=== PATIENT | female | born 1960 | race Hispanic/Latino ===

== ENCOUNTER 2022-05-16 11:40 | Day surgery (SDC) | payer BC, OTHER ==
[2022-05-12 15:44] LABS: Absolute Lymphocytes (CBC) 1.9 K/uL (0.7-4.9); Hematocrit 40.5 % (36.0-45.0); Lymphocytes % 24.1 % (15.3-44.8); MCV 83.9 fL (80-100); MPV 7.6 fL (7.6-11.3); RBC Red Blood Cell Count 4.83 M/uL (3.86-4.86)
[2022-05-12 15:51] LABS: SARS-CoV-2 Antigen Rapid Res Negative (Negative)
[2022-05-12 15:58] LABS: Potassium 5.3 mmol/L (3.5-5.1)
--- NOTE | 2022-05-13 15:09 | EKG ---
Test Date: 2022-05-12 Test Time: 15:16:57 Practice Professional: PATRICK MEASUREMENT RESULTS: Intervals: Rate: 68 OR: 134 QRSD: 82 QT: 390 QTc: 414 [place]: P: 50 OR: 134 QRS: 17 T: 19 INTERPRETIVE STATEMENTS: Normal sinus rhythm Possible Left atrial enlargement Borderline ECG No previous ECG available for comparison Electronically Signed On 05-13-22 15:08:00 CDT by Hung Vargas
[2022-05-16] MEDS ORDERED: Ringers Lactate 1,000 ML IV ONE (11:58)
[2022-05-16] MEDS ORDERED: CELECOXIB 100 MG CAPSULE ONE (12:31)
[2022-05-16] MEDS ORDERED: ACETAMINOPHEN 500 MG TAB ONE (12:31)
[2022-05-16] MEDS: CEFAZOLIN 2 GM IN 0.9% NACL 2 GM/100 ML BAG ONE ×2 (12:40→13:25)
[2022-05-16] MEDS: BUPIVACAINE 0.25% PF 10 ML VIAL ONE ×2 (12:40→13:38)
[2022-05-16] MEDS ORDERED: FENTANYL CITR 100 MCG/2 ML ONE ×2 (12:40→14:04)
[2022-05-16] MEDS ORDERED: propofoL 200 MG/20 ML VIAL IV ONE (12:40)
[2022-05-16] MEDS ORDERED: dexAMETHasone 10 MG/ML VIAL ONE (12:41)
[2022-05-16] MEDS ORDERED: MIDAZOLAM HCL 2 MG/2 ML INJ ONE (12:41)
[2022-05-16] MEDS ORDERED: ROCURONIUM 50 MG/5 ML VIAL IV ONE (12:41)
[2022-05-16] MEDS ORDERED: ONDANSETRON 4 MG/2 ML VIAL ONE ×2 (12:41→14:47)
[2022-05-16] MEDS ORDERED: LIDOCAINE 1% MPF 5 ML VIAL ONE (12:41)
[2022-05-16] MEDS ORDERED: EPHEDRINE SULF 50 MG/ML VIAL ONE (13:49)
--- NOTE | 2022-05-16 14:15 | P.OP ---
Preoperative diagnosis: Right Lower Quadrant Abdominal Pain, Chronic Appendicitis Postoperative diagnosis: Right Lower Quadrant Abdominal Pain, Chronic Appendicitis Primary procedure: Diagnostic Laparoscopy with Appendectomy Secondary procedure: Peritoneal Biopsy, Peritoneal Washings Anesthesia: GETA + Local Estimated blood loss: <5cc Specimen: Vermiform Appendix, Peritoneal Washings, Peritoneal Biopsy Findings: appendiceal tip inflammation, long staple line in RLQ Complications: None Transferred to: Recovery Room Condition: Good
[2022-05-16] MEDS ORDERED: KETOROLAC 30 MG/ML INJ ONE (14:22)
[2022-05-16] MEDS ORDERED: NEOSTIGMINE 1 MG/ML -10 ML VIAL ONE (14:30)
[2022-05-16] MEDS ORDERED: GLYCOPYRROLATE 0.2 MG/ML SYR ONE (14:30)
[2022-05-16] MEDS: HYDROMORPHONE HCL 1 MG/ML INJ ONE ×6 (14:40→15:05)
[2022-05-16 15:28] VITALS: TEMP 98.1
[2022-05-16] MEDS ORDERED: HYDROCODONE/APAP 7.5/325 MG TAB ONE (15:46)
[2022-05-16 16:11] VITALS: BP 150/54; O2SAT 99
[2022-05-16 18:43] LABS: Appearance VERY TURBID (CLEAR); Body Fluid Source PERITONEAL; Body Fluid WBC 118 /mm^3; Color of fluid Red (COLORLESS)
--- NOTE | 2022-05-17 01:37 | OP ---
Date of Procedure: 05/16/2022 Surgeon: Emery Morris MD, Preoperative Diagnosis: Right lower quadrant chronic abdominal pain/chronic appendicitis. Postoperative Diagnosis: Right lower quadrant chronic abdominal pain/chronic appendicitis. Procedures Performed: 1.Diagnostic laparoscopy. 2.Laparoscopic appendectomy. 3.Laparoscopic peritoneal washing. 4.Laparoscopic peritoneal biopsy. Anesthesia: General endotracheal plus local with 0.5% Marcaine with epinephrine. Estimated Blood Loss: 5 cc. Specimens: 1.Vermiform appendix. 2.Peritoneal washings. 3.Peritoneal biopsy. Findings: 1.Appendiceal tip inflammation along a very long staple line located in the right lower quadrant. 2.Long staple line located in the right lower quadrant on peritoneum abdominal/pelvic sidewall. 3.Peritoneal thickening near midline inferior to trocar insertion site taken for biopsy. Complications: None. The patient was transferred to recovery room in good condition. Procedure In Detail: After informed consent was obtained, the patient was brought to the operating r oom and prepped and draped in the usual sterile fashion. After adequate anesthesia was achieved, an infraumbilical area was anesthetized with 0.25% Marcaine and sharply incised. A 5 mm trocar was plac ed under direct visualization without any complication. There was no injury to vital structures upon entry into the abdomen. Additional trocar chosen in the right lower quadrant. This was similarly a nesthetized and sharply incised. A 5 mm trocar placed under direct visualization without complicatio n. Additional trocar was placed slightly to the left of midline in the left lower quadrant. This wa s similarly anesthetized and sharply incised. A 5 mm trocar was placed under direct visualization wi thout complication. The umbilical trocar was then upsized to a 12 mm under direct visualization with out any complication. The patient positioned in head down right side up position. Ratcheted grasper was used to grasp the patient's appendix and elevated. There was evidence of inflammatory change at the tip of the appendix with a pink discoloration and it was adhered loosely to a long staple line o n the right lower quadrant. This was easily using blunt dissection. A mesoappendiceal win clifton was then created with a [place] retractor. Endo-RADHA 45 purple load fired across the base of the appendix with good approximation of tissues. I then used the LigaSure device to take down the mesoa ppendix down using the LigaSure device with good hemostasis. At this point, the appendix was then pl aced in Endo Catch bag and removed through the umbilical trocar and sent off for pathologic examinati on. I then copiously irrigated the abdomen and suctioned out at this point, in the right colic gutte r and sent specimens for peritoneal washings at this time. I then turned my attention to peritoneal thickening on the anterior abdominal wall. This was dissected using blunt dissection as well as the LigaSure device and was then removed through the umbilical trocar as well and sent off as a separate specimen for examination. At this point, the abdomen was inspected. The liver was inspected at this point, and had mild fatty steatotic appearance. No obvious cirrhotic changes or other concerning fi ndings grossly. The remainder of the peritoneal lining did not have any obvious implants or concerns at this point. Focused examination of the right lower quadrant showed a long sigmoidal shaped stapl e line on the right lower quadrant sidewall, extending from the pelvis into the right colic gutter ar ea. Additional alexia were noted on the left pelvic sidewall as well. These areas were copiously i rrigated and suctioned out until completely dry. No additional findings were appreciated on examinat ion at this time. A complete examination was not performed as I focused on the right lower quadrant at this time. The spleen was not visualized during the procedure and the entirety of the small bowel was not inspected. The right colon was inspected. The sigmoid colon was inspected. The rectum was inspected and the intraperitoneal portions of the transverse colon were inspected. No obvious donald s or abnormalities appreciated. The peritoneum did not have any obvious implants. The omentum had n o obvious implants. At this point, the patient was positioned back in neutral position. The remaini ng effluent was suctioned out. The umbilical trocar site was closed using a Cristiano-Roselia suture p asser with 0 Vicryl in an interrupted fashion with good approximation of tissues. The abdomen was co mpletely desufflated under direct visualization without any complications. Remaining trocars were re moved. All skin incisions were then copiously irrigated and closed with 4-0 Monocryl fashion and Gagan mabond placed over top. The patient tolerated the procedure without any complication and transferred back in good condition. All counts were correct at the end of the case. TK/MODL Voice ID: [id number] Report ID: [id number]
== END 2022-05-16 16:12 | disposition home or self-care (01) ==
LOC: OR 11:40
PROVIDERS: ATTEND Surgery
PROC: 0DTJ4ZZ Resection of Appendix, Percutaneous Endoscopic Approach (ICD-10-PCS; principal; 2022-05-16 13:30)
DX: K36 Other appendicitis (principal); R10.31 Right lower quadrant pain; Z20.822 Contact with and (suspected) exposure to COVID-19
CPT/HCPCS: 44970; 93005; 85025; 80048; 36415 ×2; 88108; 89050; 88304; 88305 ×2; 87811; J2704; J2710; J2250; J3010 ×2; J1100; J1170 ×3; J0690; J7120; J2405 ×2